=== PATIENT | female | born 1985 ===

== ENCOUNTER 2021-08-10 12:12 | Emergency (ER) | payer OTHER ==
[2021-08-10] MEDS ORDERED: Diphtheria,Pertussis(Acell),Tetanus Vaccine 0.5 ML Syringe IM ONE (12:26)
[2021-08-10] MEDS ORDERED: Lidocaine 1% PF 2 ML SDV INJECT ONE (12:26)
[2021-08-10] MEDS ORDERED: Morphine 4 MG/ML VIAL IVPUSH ONE (12:42)
[2021-08-10] MEDS ORDERED: Diphtheria/Tetanus Toxoids,Adult (Td) 0.5 ML Syringe IM ONE (12:49)
[2021-08-10] MEDS ORDERED: Ondansetron 4 MG/2 ML SDV IVPUSH ONE (12:49)
[2021-08-10] MEDS ORDERED: Diphtheria/Tetanus Toxoids,Adult (Td) 0.5 ML Syringe ONE (12:49)
[2021-08-10] MEDS ORDERED: Sodium Chloride 0.9% 1,000 ML IV ONE (12:51)
[2021-08-10 13:38] LABS: BLOOD UREA NITROGEN,BUN 6 mg/dL (7.0-18.0); CARBON DIOXIDE,CO2 24.8 mmol/L (21.0-32.0); CHLORIDE,CL 96 mmol/L (98-107); GLUCOSE RANDOM 112 mg/dL (74-106); POTASSIUM,K 3.8 mmol/L (3.5-5.1); SODIUM,NA 136 mmol/L (136-145)
== END 2021-08-10 14:30 ==
LOC: MW.ED 12:12
DX: L03.012 Cellulitis of left finger (principal); Z23 Encounter for immunization
CPT/HCPCS: 26010; 36415; 73130; 80053; 83605; 85025; 87040; 90471; 90715; 96365; 96375; 99284; J2270; J2405; J3370; J7030; J7050